=== PATIENT | female | born 1975 | race Two or more races ===

== ENCOUNTER 2024-12-17 13:00 | Outpatient (RCR) | payer MEDICAID, SELFPAY ==
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
--- NOTE | 2024-12-03 11:06 | PT.ODAYNRPT ---
PT Outpatient Daily Note OP Daily Note Outpatient Physical Therapy Treatment Date: 12/03/24 Visit Reasons: Fracture of unspecified parts of lumbosacral spine Subjective: No new complaints or concerns. Objective: Please see flow sheet for ther ex list. Assessment: Pt tolerated light hip and LE strengthening with muscle fatigue. Pt would hold hip and groin area as a response to discomfort during quad strengthening exercises. Plan: Continue with POC. Length of Time (minutes) of Treatment: 30 Minutes Procedure Charges Therapeutic Exercise 30 minutes: Yes
--- NOTE | 2024-12-11 11:09 | PT.ODAYNRPT ---
PT Outpatient Daily Note OP Daily Note Outpatient Physical Therapy Treatment Date: 12/11/24 Visit Reasons: Fracture of unspecified parts of lumbosacral spine Subjective: Less hip pain but points to the quads as site of pain with exercises Objective: See F/S for therex Assessment: Low tissue irritability of hips today with therex but some quad soreness B with total gym Plan: Continue per POC Length of Time (minutes) of Treatment: 30 Minutes Procedure Charges Therapeutic Exercise 30 minutes: Yes
--- NOTE | 2024-12-15 14:00 | PT.ODAYNRPT ---
PT Outpatient Daily Note OP Daily Note Outpatient Physical Therapy Treatment Date: 12/15/24 Visit Reasons: Fracture of unspecified parts of lumbosacral spine Subjective: Less hip pain but points to the quads as site of pain with exercises Objective: See F/S for therex Assessment: Low tissue irritability of hips today with therex but some quad soreness B with total gym Plan: Continue per POC Length of Time (minutes) of Treatment: 30 Minutes Procedure Charges Therapeutic Exercise 30 minutes: Yes
--- NOTE | 2024-12-17 14:06 | PT.ODAYNRPT ---
PT Outpatient Daily Note OP Daily Note Outpatient Physical Therapy Treatment Date: 12/17/24 Visit Reasons: Fracture of unspecified parts of lumbosacral spine Subjective: Pt new complaints. Objective: Please see flow sheet for ther ex list. Assessment: Interventions with minimal pain. Plan: Continue with POC. Length of Time (minutes) of Treatment: 30 Minutes Procedure Charges Therapeutic Exercise 30 minutes: Yes
== END 2024-12-19 23:59 | disposition home or self-care (01) ==
LOC: CPTX 13:00
PROVIDERS: PCP Physician Assistant; Referring Provider Physician Assistant; Visit Provider Physician Assistant
DX: M54.50 Low back pain, unspecified (principal); M25.552 Pain in left hip; S32.9XXD Fracture of unspecified parts of lumbosacral spine and pelvis, subsequent encounter for fracture with routine healing; V03.90XD Pedestrian on foot injured in collision with car, pick-up truck or van, unspecified whether traffic or nontraffic accident, subsequent encounter
CPT/HCPCS: 97110; 97162

== ENCOUNTER 2024-12-26 13:14 | Outpatient (RCR) | payer MEDICAID, SELFPAY ==
--- NOTE | 2024-12-26 14:30 | PT.ODAYNRPT ---
PT Outpatient Daily Note OP Daily Note Outpatient Physical Therapy Treatment Date: 12/26/24 Visit Reasons: BACK PAIN Subjective: No new complaints or concerns. Objective: Please see flow sheet for ther ex list. Assessment: Pt completed interventions with no complaints indicating progress. Plan: Continue with pOC. Length of Time (minutes) of Treatment: 30 Minutes Procedure Charges Therapeutic Exercise 30 minutes: Yes
== END 2025-01-19 23:59 | disposition home or self-care (01) ==
LOC: CPTX 13:14
DX: M54.50 Low back pain, unspecified (principal); M25.552 Pain in left hip; S32.9XXD Fracture of unspecified parts of lumbosacral spine and pelvis, subsequent encounter for fracture with routine healing; V43.62XD Car passenger injured in collision with other type car in traffic accident, subsequent encounter
CPT/HCPCS: 97110

== ENCOUNTER 2025-09-10 09:00 | Day surgery (SDC) | payer MEDICAID, SELFPAY ==
--- NOTE | 2025-09-09 06:57 | EKG_ITS ---
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 : 1975 Requested By: Braxton Read Order Number: [id number] Reading MD: Braxton Read Measurements Intervals [place] Rate: 80 P: 57 SD: 188 QRS: 17 QRSD: 77 T: 63 QT: 370 QTc: 427 Interpretive Statements SINUS RHYTHM POSSIBLE LEFT ATRIAL ENLARGEMENT [-0.1mV P WAVE IN V1/V2] LOW QRS VOLTAGE IN PRECORDIAL LEADS [QRS DEFLECTION < 1.0 mV IN CHEST LEADS] POSSIBLE RIGHT VENTRICULAR CONDUCTION DELAY [RSR (QR) IN V1/V2] ANTEROSEPTAL MYOCARDIAL INFARCTION , OF INDETERMINATE AGE [40+ ms Q WAVE IN V1-V4] Compared to ECG 03/16/2022 13:57:20 Low QRS voltage now present Myocardial infarct finding now present T-wave abnormality no longer present /store/S0/[id number]/ecg/[id number].pdf
[2025-09-09 09:57] VITALS: BMI 23.2
[2025-09-09 10:01] VITALS: BMI 23.2
[2025-09-09 10:48] LABS: Basophils # (Auto) 0.0 Thou/mm3 (0.0-0.2); Basophils % (Auto) 0 % (0-2.5); Eosinophils # (Auto) 0.1 Thou/mm3 (0.0-0.5); Eosinophils % (Auto) 2 % (0-10); Hematocrit 40.2 % (36.0-46.0); Hemoglobin 13.3 g/dL (12.0-16.0); Immature Granulocytes Auto 0.01 Thou/mm3 (0.00-0.00); Lymphocytes # (Auto) 2.1 Thou/mm3 (1.0-4.8); Lymphocytes % (Auto) 41 % (10-50); Mean Corpuscular HGB Conc 33.1 g/dl (31.0-37.0); Mean Corpuscular Hemoglobin 32.0 pg (25.0-35.0); Mean Corpuscular Volume 97 fL (80-100); Monocytes # (Auto) 0.4 Thou/mm3 (0.0-0.8); Monocytes % (Auto) 8 % (0-12); Neutrophils # (Auto) 2.4 Thou/mm3 (1.8-7.7); Neutrophils % (Auto) 48 % (37-80); Nucleated Red Blood Cell # 0.00 Thou/mm3 (0.00-0.00); Nucleated Red Blood Cell % 0 /100 WBC (0); Platelet Count 274 Thou/mm3 (140-440); RDW Standard Deviation 48.6 fL (36.4-46.3); Red Blood Count 4.16 Miln/mm3 (4.00-5.20); White Blood Count 5.1 Thou/mm3 (3.6-11.0)
[2025-09-09 11:16] LABS: Alanine Aminotransferase < 7 U/L (10-49); Albumin, Serum 4.7 gm/dL (3.5-5.0); Albumin/Globulin Ratio 1.9 (1.2-2.2); Alkaline Phosphatase 64 U/L (46-116); Anion Gap 8 (7-16); Aspartate Amino Transferase 16 U/L (0-34); BUN/Creatinine Ratio 14 Ratio (12-20); Bilirubin,Total 0.5 mg/dL (0.3-1.2); Blood Urea Nitrogen 11 mg/dL (9-23); Calcium 9.5 mg/dL (8.3-10.6); Calcium (Corrected) 9.5 mg/dL (8.5-10.1); Carbon Dioxide 28.1 mMol/L (20.0-31.0); Chloride 105 mMol/L (98-107); Creatinine (Component) 0.8 mg/dL (0.6-1.3); Estimated Creatinine Clearance 83.0 mL/min (>60); Globulin 2.5 gm/dL (2.3-3.5); Glucose 91 mg/dL (74-106); Osmolality,Calculated 280 (275-295); Potassium 3.8 mMol/L (3.4-5.1); Sodium 141 mMol/L (136-145); Total Protein 7.2 gm/dL (5.7-8.2); eGFR > 60 See Note
[2025-09-10] VITALS (9 sets, daily range): BP systolic 116–145; BP diastolic 67–89; PULSE 64–85; RESP 14–22; TEMP 36.6–36.7; O2SAT 98–100; BMI 24.2
[2025-09-10] MEDS: RINGERS LACTATED 1000 ML 1,000 ML 20 ML IV (10:05)
--- NOTE | 2025-09-10 10:59 | SUR.PHASEI ---
1059 patient arrived to recovery resting comfortably in [facility], on oxygen 10L via oxy mask with an oral airway in place, breathing unlabored, vital signs stable, dressing intact to abdomen; dermabond, no bleeding noted, report received from Dr. Franco/ Allyn GOOD and Cheng GRIFFIN
--- NOTE | 2025-09-10 11:05 | PD.SUROPNT ---
Date of Procedure 09/10/25 Pre Op Diagnosis Symptomatic cholelithiasis Post Op Diagnosis Cholelithiasis with cholecystitis Procedure Laparoscopic cholecystectomy Findings Moderately distended gallbladder with multiple gallstones and chronic cholecystitis Procedure Description Patient was brought into the operating room in supine position. After administration of general endotracheal anesthesia abdomen was prepped and draped in standard surgical manner. A Veress needle was inserted through the umbilicus and pneumoperitoneum was obtained up to 15 mmHg. The Veress needle was then removed, a 5 mm infraumbilical incision was made and the 5mm trocar was inserted. Laparoscopic camera was placed. Under direct visualization a laparoscopic camera a 10 mm trocar was placed in subxiphoid and two 5 mm trocars placed in right upper quadrant. The gallbladder was identified and was noted to be moderately distended with multiple gallstones and chronic cholecystitis. It was retracted cephalad and laterally. Dissection started near the infundibulum of gallbladder where cystic duct and gallbladder junction clearly identified. The cystic duct was circumferentially dissected off the peritoneum and surrounding inflammatory tissue. The critical view of safety was clearly demonstrated. Cystic duct was then divided between 2 endoclips proximally and one distally. The cystic artery was similarly dissected and divided. The gallbladder was then from the liver bed using electrocautery. The gallbladder was then placed inside an Endo Catch and removed from the abdomen utilizing subxiphoid trocar site. The area was copiously and thoroughly washed and irrigated, all the fluid was suctioned and the suction fluid returned clear. Hemostasis achieved using electrocautery. Endoclips noted be in place and intact without any bleeding or any leakage. Hemostasis was adequate and satisfactory. The subxiphoid trocar sites fascial defect was closed with 0 Vicryl using Endo Closure device. Instruments and trocars removed, pneumoperitoneum was evacuated and the incisions closed with 4-0 Monocryl in subcuticular fashion. Instrument needle and sponge counts were all reported to be correct X2. Patient tolerated the procedure well, was extubated, breathing spontaneously and without difficulty and was transferred to postanesthesia care in stable condition. Anesthesia GETA and local Pathology / specimen Other (Gallbladder and contents) Estimated Blood Loss 10 Condition Stable Disposition PACU Surgeon Braxton Read MD Surgical Staff Operation Date: 09/10/25 11:30 Case Staff Anesthesiologist: Wilmer Franco RN First Assistant: Thea Kerr
[2025-09-10] MEDS: HYDROmorphone INJ 2 MG/ML VIAL 0.4 MG IVP (11:33)
[2025-09-10] MEDS: MORPHINE SULF INJ 4 MG/ML VIAL 3 MG IV (11:43)
--- NOTE | 2025-09-10 11:50 | SUR.PHASEII ---
6920 Dr. Read made aware that after administration pf Morphine via IV per anesthesia order, IV area noted to have reddness, no pain per patient/ vital sign stable, no new order at time will continue to monitor
--- NOTE | 2025-09-10 12:12 | SUR.PHASEII ---
1212 Patient meets discharge criteria from recovery, awake and alert, breathing unlabored, vital signs stable, denies pain, dressing intact; no bleeding noted, redness from IV site ceased, drinking 7up; denies nausea, able to dress herself into her clothing, discharge instructions given to patient and patients son, son signed discharge instructions. Patient given all her belongings prior to discharge, transported via wheelchair and left in a private vehicle.
== END 2025-09-10 12:12 | disposition home or self-care (01) ==
PROVIDERS: PCP Physician Assistant; Referring Provider Surgery; Visit Provider Surgery
PROC: 0FT44ZZ Resection of Gallbladder, Percutaneous Endoscopic Approach (ICD-10-PCS; CPT 47562; principal; 2025-09-10 11:15)
DX: K80.10 Calculus of gallbladder with chronic cholecystitis without obstruction (principal); Z01.810 Encounter for preprocedural cardiovascular examination; F41.9 Anxiety disorder, unspecified; N39.0 Urinary tract infection, site not specified; Z79.890 Hormone replacement therapy; Z79.899 Other long term (current) drug therapy
CPT/HCPCS: 47562; 36415; 80053; 85025; 93005; A4217; A4649; J0131; J0694; J1100; J1171; J2250; J2270; J2405; J2704; J3010; J3490; J7120